=== PATIENT | female | born 1990 | race Caucasian/White ===

== ENCOUNTER → 2018-02-26 | Outpatient (CLI) | payer OTHER ==
[~2018-02-26] MED LIST: MTR600X PO; PRENTAB26 PO
== END | disposition home or self-care (01) ==
LOC: C.LAB1850 09:57
PROVIDERS: ATTEND Obstetrics & Gynecology
DX: Z34.02 Encounter for supervision of normal first pregnancy, second trimester (principal)

== ENCOUNTER 2021-07-05 19:03 | Inpatient (IN) ==
[2021-07-05] MEDS ORDERED: OXYTOCIN 30 UNITS/500 ML BAG IV PRN ×2 (19:52)
--- NOTE | 2021-07-05 20:04 | History & Physical Report ---
Date of Service July 05, 2021 Assessment & Plan (1) Encounter for planned induction of labor: Plan: IUP at 41 weeks with AROM during placement of cervical balloon. will begin pitocin augmentation of labor epidural analgesia when requested anticipate vaginal History of Present Illness Primary Care Provider: Rosalba Xiong PA-C Patient is a 30 yo white female EDC 06/27/21 who presents at 41 weeks for IOL because of post term . no problems during the . GBS -negative History of HSV but no outbreaks during the . she has been on suppressive therapy with valtrex. Allergies Allergy/AdvReac Type Severity Reaction Status Date / Time No Known Drug Allergies Allergy Unknown . Verified 07/05/21 19:18 Home Medications Medication Instructions Recorded Confirmed Type prenat.vits,candy,[id number] 1 tab PO DAILY 08/16/20 07/05/21 History valacyclovir 500 mg tablet 500 mg PO BID 60 Days #120 tab 05/18/21 07/05/21 Rx (Valtrex) Patient History Medical History Encounter for pre-operative examination Genital herpes History of chicken pox Surgical History History of dilatation and curettage with polyps removed in 08/2017 Family History Father Diabetes mellitus, type 2 Denies family history of Ovarian cancer Breast cancer Colorectal cancer Social History Smoking Status: Never smoker Second Hand Exposure: No; Hx Alcohol Use: No Hx Substance Use: No Preferred Language: Citizen Of [place] Communication Ability: Effective Driver/Guide Required: No Beliefs That Will Affect Care: None marital status: marital status details: Luis Kirk (34) [phone] Current Living Situation: Spouse Current Living Situation Comment: lives with spouse, daughter, dog, cat-spouse changing litter current occupational status: employed current occupation: logistics program manager [employer] Other Information That Helps Us Care for You: No Feels Safe at Home: Yes Safety Concerns: Feels Safe At This Time Assistive Devices: Glasses Review of Systems All systems reviewed & are unremarkable except as noted in HPI & below Physical Exam Constitutional: WD/WN, vitals as above Respiratory: normal respiratory effort, lungs clear to auscultation Cardiovascular: RRR, no murmur, no edema Psychiatric: A+Ox3, euthymic affect Genitourinary: OB Exam Abdomen: + vertex, + estimated weight (7-8 pounds) and + irregular contractions Manual OB Exam: + cervical dilation 2 cm (2-3), + cervical effacement 60% and + station (-3 ) OB Exam Monitor Tracing: + external FHT monitor used, + external uterine monitor used, + category I and + normal FHT variability speculum placed and cervix visualized initially but vaginal wall kept obscuring the cervix and the balloon could not be placed this way. the speculum was removed and a stylet was inserted into the catheter. the catheter was then threaded through the cervix and after the balloon was being filled, membranes ruptured spontaneously for clear fluid. Results & Data ([facility]) Vital Signs (Past 12 Hours) Vital Signs Temp Pulse Resp BP 07/05/21 19:18 98.2 F 16 07/05/21 19:14 100 H 128/78 Code Status & VTE Plan VTE Prophylaxis Plan VTE Prophylaxis will be ordered: No Coding Level of Care Code None Diagnoses Encounter for planned induction of labor Z34.90
[2021-07-05] MEDS: LACTATED RINGER'S 1,000 ML IV PRN (20:09)
[2021-07-05 20:47] LABS: Hematocrit (blood only) 36.9 % (37-47); Hemoglobin 12.6 g/dL (12.0-16.0); Mean Corpuscular Hemoglobin 32.1 pg (25-34); Mean Corpuscular Hgb Conc 34.1 g/dL (32-36); Mean Corpuscular Volume 94.1 fL (80-100); Mean Platelet Volume 13.3 fL (7.4-10.4); Platelet Count 105 K/uL (130-400); Platelet Estimate Decreased (Normal); RDW Coefficient of Variation 14.3 % (11.5-14.5); RDW Standard Deviation 49.3 fL (36.4-46.3); Red Blood Count 3.92 M/uL (4.2-5.4)
[2021-07-06] MEDS ORDERED: fentaNYL citrate 100 MCG/2 ML VIAL ONE (00:04)
[2021-07-06] MEDS ORDERED: BUPIVACAINE 0.25% 30 ML VIAL ONE (00:04)
[2021-07-06] MEDS ORDERED: ePHEDrine sulfate 50 MG/ML AMP ONE (00:04)
[2021-07-06] MEDS ORDERED: SODIUM CHLORIDE 0.9% INJ 10 ML VIAL ONE (00:04)
[2021-07-06] MEDS ORDERED: fentaNYL 2MCG/ML ROPIVACAINE 1.25MG/ML 100 ML BAG EPI ONE (00:05)
[2021-07-06] MEDS ORDERED: diphenhydrAMINE 50 MG/ML VIAL IV PRN (00:29)
[2021-07-06] MEDS ORDERED: ePHEDrine sulfate 50 MG/ML AMP IV PRN (00:29)
[2021-07-06] MEDS ORDERED: ONDANSETRON INJ 2 MG/ML 2 ML VIAL IV PRN (00:29)
[2021-07-06] MEDS ORDERED: NALBUPHINE HCL INJ 10 MG/ML AMP IV PRN (00:29)
[2021-07-06] MEDS ORDERED: NALOXONE HCL 1 MG in SODIUM CHLORIDE 0.9% 1000ML 1,000 ML IV PRN (00:29)
[2021-07-06] MEDS ORDERED: fentaNYL 2MCG/ML ROPIVACAINE 1.25MG/ML 100 ML BAG EPI PRN (00:29)
[2021-07-06] MEDS ORDERED: NALOXONE HCL 0.4 MG/1 ML VIAL/CARP IV PRN (00:29)
--- NOTE | 2021-07-06 00:31 | Anesthesiology Consultation ---
Date of Service July 06, 2021 Assessment & Plan Chart Review Chart Review: Patient NOT seen in Pre Admission Testing and Acceptable Risk for Labor Epidural Consults Requested none ASA ASA2 Proposed Anesthesia Anesthesia Type: Labor Epidural and CSE Risk / Benefits Reviewed With: PT / POA / Parent / Guardian, Accepts Plan and Informed Consent Obtained History Height/Weight Height: 5 ft 2 in Weight: 72.121 kg Allergies Allergy/AdvReac Type Severity Reaction Status Date / Time No Known Drug Allergies Allergy Unknown . Verified 07/05/21 19:18 Medications Home Medications Medication Instructions Recorded Confirmed Last Taken prenat.vits,candy,nri-[id number] 1 tab PO DAILY 08/16/20 07/05/21 07/05/21 valacyclovir 500 mg tablet 500 mg PO BID 60 Days #120 tab 05/18/21 07/05/21 07/05/21 (Valtrex) Active Medications Generic Name Dose Route Start Last Admin Trade Name Freq PRN Reason Stop Dose Admin Oxytocin 30 units in 500 mls @ 9 mls/hr 07/05/21 19:52 07/05/21 23:30 Pitocin IV 07/07/21 19:51 0.54 units/hr .Q24H PRN 9 mls/hr Labor Induction/Augmentation Titration Protocol 0.54 UNITS/HR Lactated Ringer's 1,000 mls @ 125 mls/hr 07/05/21 19:52 07/06/21 00:10 Lr IV 07/07/21 19:51 999 mls/hr .Q8H PRN Infusion L&D Protocol Protocol NPO Date Last Intake of Fluids: 07/05/21 Time Last Intake of Fluids: 18:30 Date Last Intake of Solids: 07/05/21 Time Last Intake of Solids: 23:00 Past Medical History Medical History Encounter for pre-operative examination Genital herpes History of chicken pox Exercise / Class Metabolic Activity II 4-5 Yardwork/Stairs/Walk up hill Past Family History Family History Father Diabetes mellitus, type 2 Denies family history of Ovarian cancer Breast cancer Colorectal cancer Past Surgical History Surgical History History of dilatation and curettage with polyps removed in 08/2017 Past Anesthesia History No Hx of Anesthesia Complications and No Family Hx of Anesthesia Complications History of PONV No Hx of PONV and No Hx of Motion Sickness Social History Smoking Status: Never smoker Hx Alcohol Use: No Hx Substance Use: No substance use type: does not use Review of Systems no chest pain or sob Physical Exam Vital Signs Last Vital Signs Temp 36.8 C 07/05/21 22:52 Pulse 70 07/06/21 00:25 Resp 18 07/05/21 22:52 BP 130/72 07/06/21 00:11 Pulse Ox 93 07/06/21 00:25 ENMT Mouth: no TMJ abnormality Thyromental Distance: > or= 3.5 Finger Breadths Mallampati Class: II Neck normal visual inspection Respiratory normal respiratory effort Auscultation: lungs clear to auscultation bilaterally Cardiovascular Rate/Rhythm: regular rate and regular rhythm Musculoskeletal Spine: normal cervical ROM Neurologic moves all extremities Psychiatric Orientation: alert and oriented x 3 Testing Laboratory Results 07/05/21 20:18
[2021-07-06] MEDS: LACTATED RINGER'S 1,000 ML IV PRN ×2 (00:39→05:31)
[2021-07-06] MEDS ORDERED: DIPHTHERIA/TETANUS/PERTUSSIS 0.5 ML SYR/VIAL IM ONE (06:13)
[2021-07-06] MEDS ORDERED: BENZOCAINE 20% AER SPR 82.5 GM CAN EXT PRN (06:13)
[2021-07-06] MEDS ORDERED: SUPERCREAM 0.870% 15 GM JAR EXT PRN (06:13)
[2021-07-06] MEDS ORDERED: ACETAMINOPHEN 325 MG TAB PO PRN (06:13)
[2021-07-06] MEDS ORDERED: oxyCODONE/ACETAMINOPHEN 5mg/325mg TAB PO PRN (06:13)
[2021-07-06] MEDS ORDERED: HYDROCORTISONE ACETATE 25 MG SUPP PR PRN (06:13)
[2021-07-06] MEDS ORDERED: OXYTOCIN 30 UNITS/500 ML BAG IV PRN (06:13)
[2021-07-06] MEDS ORDERED: bisacodyL 10 MG SUPP PR PRN (06:13)
--- NOTE | 2021-07-06 06:20 | Delivery Summary ---
Vaginal Delivery Summary Date of Service July 06, 2021 Vaginal Delivery Summary and 1st Degree LAC Patient is a 30-year-old 2 para 1-0-0-1 white female who presents at 41 weeks for induction of labor because of postterm . She presented for placement of a cervical balloon on the evening of 07/05/2021. During the placement of the balloon membranes were ruptured for clear fluid. Pitocin augmentation of her labor was then begun. She received effective epidural analgesia. She progressed to full dilation and through 2 contractions, pushed effectively over intact perineum for delivery of a viable female . After the head was delivered, the shoulders were delivered with hyperflexion of the hips as there was a moderate shoulder dystocia present. The anterior shoulder delivered followed by the posterior shoulder. The rest of the infant delivered easily and was then placed on the mother's abdomen for further attention and drying. The was vigorous and moving all 4 limbs. After 1 minute the cord was clamped and cut. After cord blood was obtained the placenta was expressed intact with a three-vessel cord. bleeding was controlled with fundal massage and dilute Pitocin. A first-degree perineal laceration was repaired with 3-0 chromic in the usual fashion. Estimated estimated blood loss is 200 cc. Mother and were doing well after delivery[place] [facility] [place] Delivery Type Details: and 1st Degree LAC
[2021-07-06] MEDS: IBUPROFEN 600 MG TAB PO PRN ×3 (06:43→19:43)
--- NOTE | 2021-07-06 08:18 | Anesthesia Procedure Note ---
Date of Service July 06, 2021 Anesthesia Post Epidural Note Vital Signs Vital Signs: Temp Pulse Resp BP Pulse Ox 37.0 C 90 18 102/57 L 86 L 07/06/21 05:54 07/06/21 07:54 07/06/21 06:39 07/06/21 07:54 07/06/21 05:54 Pain Intensity Abdomen: Pain Intensity: 1 Notes Mental Status: alert / awake / arousable Nausea / Vomiting: adequately controlled Pain: adequately controlled Airway Patency, RR, SpO2: stable & adequate BP & HR: stable & adequate Hydration State: stable & adequate Neuraxial Anesthesia: was administered and sensory block is resolving Anesthetic Complications: no major complications apparent and Pt Satisfied with anesthetic care Epidural: Removed without complications and With tip intact
[2021-07-06] MEDS: DOCUSATE SODIUM 100 MG CAP PO SCH ×2 (08:40→21:18)
[2021-07-06] MEDS: PRENATAL VITAMIN 1 TAB PO SCH (08:40)
[2021-07-07] MEDS: IBUPROFEN 600 MG TAB PO PRN (03:50)
--- NOTE | 2021-07-07 06:12 | Obstetrical Progress Note ---
Date of Service <Parag Kaba DO - Last Filed: 07/07/21 07:26> July 07, 2021 Assessment & Plan <Parag SnownicoDO janes - Last Filed: 07/07/21 07:26> (1) Encounter for care and examination after delivery: PPD1 - O-, GBS-, RI - Baby is Rh negative as well. - Vitals WNL. - Encouraged . - Patient would like to leave today. Discussed discharge instructions with the patient and her . <Derick Figueroa MD, FACOG - Last Filed: 07/07/21 07:29> (1) Encounter for care and examination after delivery: Subjective <Parag Snownicojanes - Last Filed: 07/07/21 07:26> Ambulation: ambulating normally Voiding: no voiding problems Passing Gas:: Yes Diet Tolerance:: regular diet Lochia:: Small Feeding Type:: breast feeding Current Pain Level(1-10): 2 (from stitches. ) Review of Systems Denies fever, chills, sweats Denies shortness of breath, difficulty breathing, chest pain, palpitations, ch est pressure. Denies breast pain. Denies dysuria. Denies headache or changes in vision Physical Exam <Parag Kaba - Last Filed: 07/07/21 07:26> General: Alert, oriented. No acute distress. Cardiac: Regular rate and rhythm, no murmurs/rubs/gallops. Respiratory: Clear to auscultation bilaterally a/p, no wheezes/rales/rhonchi. No increased work of breathing. Symmetrical chest rise. No respiratory distress. Abdomen: Soft, nontender, nondistended. Bowel sounds present. Uterus: Uterine fundus firm, palpable at umbilicus. Lower Extremities: No lower extremity edema or swelling. No deep calf pain. Hernan's negative bilaterally Results & Data ([facility]) <Parag Snownicojanes - Last Filed: 07/07/21 07:26> Vital Signs (Past 12 Hours) Vital Signs Temp Pulse Resp BP 07/07/21 03:50 36.9 C 74 16 98/65 L 07/06/21 23:25 36.9 C 80 16 99/65 L 07/06/21 19:45 36.8 C 83 16 108/72 <Derick Figueroa MD, FACOG - Last Filed: 07/07/21 07:29> Co-Signing Physician Notes Resident Physician Supervision Note: I was present with Dr. Garcia during the history and exam. I discussed the case with the resident and agree with the findings and plan as documented in the note. Any exceptions or clarifications are listed here: [None] Documented By: Derick Figueroa MD, FACOG Resident Activity Tracking <Parag Kaba DO - Last Filed: 07/07/21 07:26> Resident Involvement: Resident Care Provided Care Provided: OB Delivery
[2021-07-07 06:45] LABS: Hematocrit (blood only) 32.2 % (37-47); Mean Corpuscular Hemoglobin 32.9 pg (25-34); Mean Corpuscular Hgb Conc 34.2 g/dL (32-36); Mean Corpuscular Volume 96.4 fL (80-100); Platelet Count 86 K/uL (130-400); RDW Coefficient of Variation 14.7 % (11.5-14.5); RDW Standard Deviation 51.2 fL (36.4-46.3); Red Blood Count 3.34 M/uL (4.2-5.4)
[2021-07-07 06:46] LABS: Platelet Estimate Decreased (Normal)
[2021-07-07] MEDS: PRENATAL VITAMIN 1 TAB PO SCH (09:01)
[2021-07-07] MEDS: DOCUSATE SODIUM 100 MG CAP PO SCH (09:01)
[2021-07-07] MEDS ORDERED: bisacodyL 5 MG TABEC PO SCH (20:00)
== END 2021-07-07 11:20 | disposition home or self-care (01) | DRG 807 ==
LOC: OPB 19:03 → 4S1 19:06 → 4S2 07-06 10:15